=== PATIENT | female | born 1995 | race African-American/Black ===

== ENCOUNTER 2021-09-14 04:18 | Outpatient (CLI) | payer SELFPAY | END 2021-09-14 04:19 | disposition home or self-care (01) | LOC: AMB 09-20 10:35 | PROVIDERS: Visit Provider Family Medicine | DX: S49.91XA Unspecified injury of right shoulder and upper arm, initial encounter (principal); S49.81XA Other specified injuries of right shoulder and upper arm, initial encounter; V49.9XXA Car occupant (driver) (passenger) injured in unspecified traffic accident, initial encounter; Y92.410 Unspecified street and highway as the place of occurrence of the external cause | CPT/HCPCS: A0425; A0427 ==